=== PATIENT | female | born 1975 | race Caucasian/White ===

== ENCOUNTER 2017-04-27 21:06 | Emergency (ER) | payer SELFPAY ==
[2017-04-27 21:16] VITALS: BMI 32.3
[2017-04-27] MEDS ORDERED: NORMODYNE INJ 20 MG VIAL ONE (21:40)
[2017-04-27] MEDS ORDERED: NORMODYNE INJ 100 MG VIAL IVP ONE (21:40)
--- NOTE | 2017-04-27 21:56 | DR.GENAD ---
HPI - PCP Primary Care Physician: cam - Complaint/Symptoms Chief Complaint:: pt states" a couple hours ago my head stated hurting and i got nauseaed and my bloop pressure 209/136" - Nurses notes reviewed Nurses Notes Review: Yes - Source History Provided: Patient - Mode of Arrival Mode of Arrival: Ambulatory - Timing Onset of Chief Complaint: 04/27/17 Came on: Suddenly - Duration Duration: Constant Duration: Days PMH - PMH Past Medical History: Yes Past Medical History: Hypertension Past Surgical History: Yes - Family History History of Family Medical Conditions: Yes Family Medical History: Diabetes Mellitus, Cancer, [place], Sudden Cardiac , Hypertension - Social History Do you use any recreational Drugs:: No Lives With: Family Lives Where: Home - infectious screening In the last 2 months have you had wt loss of >10#?: NO Have you had fever, night sweats or hemotysis?: No Have you traveled outside the country in the last 6 months?: No Isolation: Standard PE - Vital Signs Vitals: Temperature 97.4 F Pulse Rate [Left Brachial] 80 Pulse Rate 100 Respiratory Rate 16 Blood Pressure [Left Arm] 195/89 Blood Pressure [Right Arm] 180/96 Blood Pressure 271/149 O2 Sat by Pulse Oximetry 99 ROR - Labs Reviewed Result Diagrams: 04/27/17 22:23 04/27/17 22:23 Laboratory: WBC 7.7 X10^3/uL (3.6-10.0) 04/27/17 22:23 RBC 4.34 X10^6/uL (3.5-5.4) 04/27/17 22:23 Hgb 10.7 g/dL (12.0-16.0) L 04/27/17 22:23 Hct 32.2 % (36.0-47.0) L 04/27/17 22:23 MCV 74.2 fL (80.0-100.0) L 04/27/17 22:23 MCH 24.7 pg (27.0-34.0) L 04/27/17 22:23 MCHC 33.3 g/dL (33.0-35.0) 04/27/17 22:23 RDW 14.9 % (11.6-16.5) 04/27/17 22:23 Plt Count 303 X10^3/uL (150.0-450.0) 12/25/17 22:23 Plt Count Comment Adequate (ADEQUATE) 04/27/17 22: MPV 9.2 fL (7.4-11.0) 04/27/17 22:23 Neut % 63.0 % (42.0-75.0) 04/27/17 22: Lymph % 29.3 % (21.0-51.0) 04/27/17 22: [place] % 6.4 % (0.0-13.0) 04/27/17 22:23 Eos % 0.6 % (0.9-2.9) L 04/27/17 22: Baso % 0.7 % (0.2-1.0) 04/27/17 22: Neut # 4.8 x10^3/uL (2.2-4.8) 04/27/17 22: Lymph # 2.2 X10^3/uL (1.3-2.9) 04/27/17 22:23 [place] # 0.5 x10^3/uL (0.3-0.8) 04/27/17 22:23 Eos # 0.0 x10^3/uL (0.0-0.2) 04/27/17 22: Baso # 0.1 X10^3/uL (0.0-0.1) 04/27/17 22: Absolute Nucleated RBC 0.0 /100WBC 04/27/17 22:23 Plt Morphology Comment Normal (NORMAL) 04/27/17 22: RBC Morphology Abnormal (NORMAL) A 04/27/17 22: Microcytosis Slight A 04/27/17 22:23 Sodium 140 mmol/L (136-145) 04/27/17 22:23 Corrected Sodium TNP 04/27/17 22:23 Potassium 3.9 mmol/L (3.5-5.1) 04/27/17 22: Chloride 105 mmol/L (98-107) 04/27/17 22:23 Carbon Dioxide 26.9 mmol/L (21-32) 04/27/17 22:23 BUN 23 mg/dL (7-18) H 04/27/17 22:23 Creatinine 1.58 mg/dL (0.55-1.02) H 04/27/17 22:23 Est GFR (MDRD) Af Amer 46 (>60) L 04/27/17 22:23 Est GFR (MDRD) Non-Af 38 (>60) L 04/27/17 22:23 Glucose 103 mg/dL (65-99) H 04/27/17 22:23 Calcium 8.4 mg/dL (8.5-10.1) L 04/27/17 22:23 Corrected Calcium TNP 04/27/17 22:23 Total Bilirubin 0.20 mg/dL (0.2-1.0) 04/27/17 22:23 AST 14 Units/L (15-37) L 04/27/17 22:23 ALT 19 Units/L (12-78) 04/27/17 22:23 Alkaline Phosphatase 83 Units/L (46-116) 04/27/17 22:23 Total Protein 7.9 g/dL (6.4-8.2) 04/27/17 22:23 Albumin 3.5 g/dL (3.4-5.0) 04/27/17 22:23 Globulin 4.4 g/dL (2.5-4.5) 04/27/17 22:23 Albumin/Globulin Ratio 0.8 Ratio (1.1-2.1) L 04/27/17 22:23 Specimen Type Clean catch urine 04/27/17 22:15 Urine Color Yellow (YELLOW) 04/27/17 22:15 Urine Appearance Clear (CLEAR) 04/27/17 22:15 Urine pH 7.0 (5.0 - 8.0) 04/27/17 22:15 Ur Specific [place] 1.010 (1.000-1.030) 04/27/17 22:15 Urine Protein 2+ (NEGATIVE) 04/27/17 22:15 Urine Glucose (UA) Negative (NEGATIVE) 04/27/17 22:15 Urine Ketones Negative (NEGATIVE) 04/27/17 22:15 Urine Occult Blood 1+ (NEGATIVE) 04/27/17 22:15 Urine Nitrite Negative (NEGATIVE) 04/27/17 22:15 Urine Bilirubin Negative (NEGATIVE) 04/27/17 22:15 Urine Urobilinogen Normal (NORMAL) 04/27/17 22:15 Ur Leukocyte Esterase 3+ (NEGATIVE) 04/27/17 22:15 Urine RBC Rare /HPF (NEGATIVE) 04/27/17 22:15 Urine WBC 1-5 /HPF (NEGATIVE) 04/27/17 22:15 Ur Squamous Epith Cells Moderate /HPF (NEGATIVE) 04/27/17 22:15 Urine Bacteria Trace /HPF (NEGATIVE) 04/27/17 22:15 Ur Culture Indicated? No/not indicated 04/27/17 22:15 Urine Opiates Screen Negative (NEG=<300) 04/27/17 22:15 Urine Methadone Screen Negative (NEG=<300) 04/27/17 22:15 Ur Barbiturates Screen Negative (NEG=<200) 04/27/17 22:15 Ur Phencyclidine Scrn Negative (NEG=<25) 04/27/17 22:15 Ur Amphetamines Screen Negative (NEG=<1000) 04/27/17 22:15 U Benzodiazepines Scrn Negative (NEG=<200) 04/27/17 22:15 Urine Cocaine Screen Negative (NEG=<300) 04/27/17 22:15 U Marijuana (THC) Screen Negative (NEG=<50) 04/27/17 22:15 - Discharge Plan Condition: Stable Prescriptions: Atenolol [TENORMIN 25 mg *] 25 mg PO DAILY #30 tab Lisinopril [ZESTRIL *] 20 mg PO DAILY #30 tab - Follow ups/Referrals Follow ups/Referrals: ALEE CAM [Primary Care Provider] - 3 days - Instructions Instructions: Hypertension, [id number] Additional Instructions: RETURN TO ED IF WORSE. MONITOR BLOOD PRESSURE DAILY AND CHART AND TAKE TO YOUR DOCTOR.
[2017-04-27] MEDS ORDERED: NIFEDIPINE CAP 10 MG PO ONE (21:57)
[2017-04-27] MEDS ORDERED: NIFEDIPINE CAP 10 MG ONE (22:06)
[2017-04-27 22:40] LABS: BASOPHILS # (AUTO) 0.1 X10^3/uL (0.0-0.1); BASOPHILS % (AUTO) 0.7 % (0.2-1.0); EOSINOPHILS % (AUTO) 0.6 % (0.9-2.9); HEMATOCRIT 32.2 % (36.0-47.0); HEMOGLOBIN 10.7 g/dL (12.0-16.0); LYMPHOCYTES # (AUTO) 2.2 X10^3/uL (1.3-2.9); LYMPHOCYTES % (AUTO) 29.3 % (21.0-51.0); MEAN CORPUSCULAR HEMOGLOBIN 24.7 pg (27.0-34.0); MEAN CORPUSCULAR HGB CONC 33.3 g/dL (33.0-35.0); MEAN CORPUSCULAR VOLUME 74.2 fL (80.0-100.0); MEAN PLATELET VOLUME 9.2 fL (7.4-11.0); MONOCYTES # (AUTO) 0.5 x10^3/uL (0.3-0.8); MONOCYTES % (AUTO) 6.4 % (0.0-13.0); NEUTROPHILS # (AUTO) 4.8 x10^3/uL (2.2-4.8); PLATELET COUNT 303 X10^3/uL (150.0-450.0); RED BLOOD COUNT 4.34 X10^6/uL (3.5-5.4); RED CELL DISTRIBUTION WIDTH 14.9 % (11.6-16.5); WHITE BLOOD COUNT 7.7 X10^3/uL (3.6-10.0)
[2017-04-27 22:42] LABS: BILIRUBIN,URINE NEGATIVE (NEGATIVE); BLOOD/HEMOGLOBIN,URINE 1+ (NEGATIVE); GLUCOSE, URINE NEGATIVE (NEGATIVE); KETONES,URINE NEGATIVE (NEGATIVE); LEUKOCYTE ESTERASE ,URINE 3+ (NEGATIVE); NITRITES,URINE NEGATIVE (NEGATIVE); PROTEIN,URINE 2+ (NEGATIVE); UROBILINOGEN,URINE NORMAL (NORMAL)
[2017-04-27 22:50] LABS: ALANINE AMINOTRANSFERASE 19 Units/L (12-78); ALBUMIN 3.5 g/dL (3.4-5.0); ALKALINE PHOSPHATASE 83 Units/L (46-116); ASPARTATE AMINO TRANSFERASE 14 Units/L (15-37); BLOOD UREA NITROGEN 23 mg/dL (7-18); CALCIUM 8.4 mg/dL (8.5-10.1); CARBON DIOXIDE 26.9 mmol/L (21-32); CHLORIDE 105 mmol/L (98-107); CREATININE 1.58 mg/dL (0.55-1.02); SODIUM 140 mmol/L (136-145); TOTAL PROTEIN 7.9 g/dL (6.4-8.2); eGFR BLACK RACES 46 (>60); eGFR NON BLACK RACES 38 (>60)
[2017-04-27 22:53] LABS: MICROCYTOSIS SLIGHT; PLATELET MORPHOLOGY COMMENT NORMAL (NORMAL)
[2017-04-27 23:05] LABS: APPEARANCE,URINE CLEAR (CLEAR); BACTERIA,URINE TRACE /HPF (NEGATIVE); COLOR,URINE YELLOW (YELLOW); RBC,URINE RARE /HPF (NEGATIVE); SQUAMOUS EPITHELIAL CELL,UR MODERATE /HPF (NEGATIVE)
[2017-04-28] MEDS ORDERED: CATAPRES TAB 0.2 MG PO ONE (01:30)
[2017-04-28] MEDS ORDERED: CATAPRES TAB 0.2 MG ONE (01:40)
[2017-04-28 03:17] VITALS: BP 189/98
== END 2017-04-28 03:10 | disposition home or self-care (01) ==
LOC: ER 21:19
DX: I10 Essential (primary) hypertension (principal)
CPT/HCPCS: 36415; 80053; 80307; 81001; 85025; 96365; 96374; 99282; 99283; A4222; G0434; J3490

== ENCOUNTER 2017-06-14 15:39 | Emergency (ER) | payer OTHER ==
[2017-06-14 15:46] VITALS: BMI 32.3
[2017-06-14] MEDS ORDERED: NIFEDIPINE CAP 10 MG PO ONE (17:06)
[2017-06-14] MEDS ORDERED: NIFEDIPINE CAP 10 MG ONE (17:07)
[2017-06-14] MEDS ORDERED: ROCEPHIN VIAL 1 GM IM ONE (17:18)
[2017-06-14] MEDS ORDERED: TORADOL 60 MG VIAL IM ONE (17:18)
--- NOTE | 2017-06-14 17:19 | DR.GENAD ---
HPI - PCP Primary Care Physician: Dr. Cam - Complaint/Symptoms Chief Complaint:: Since pt c/o left nare pain. States that pain has increased gradually and has made her whole head hurt. Pt states that left side of face has started swelling Self Treatment fo Chief Complaint: took sinus medicine and tylenol with no relief - Nurses notes reviewed Nurses Notes Review: Yes - Source History Provided: Patient - Mode of Arrival Mode of Arrival: Ambulatory - Timing Onset of Chief Complaint: 06/11/17 Came on: Suddenly - Duration Duration: Constant Duration: Days - Severity Severity: Moderate PMH - PMH Past Medical History: Yes Past Medical History: Hypertension Past Surgical History: Yes Past Surgical History Comment: tubal ligation - Family History History of Family Medical Conditions: Yes Family Medical History: Diabetes Mellitus, Cancer, [place], Hypertension - Social History Does patient currently use any type of tobacco product: No Have you used tobacco products in the last 12 months: No Type of Tobacco Use: None Does any household member use tobacco: Yes Alcohol Use: None Do you use any recreational Drugs:: No Lives With: Family Lives Where: Home - infectious screening In the last 2 months have you had wt loss of >10#?: NO Have you had fever, night sweats or hemotysis?: No Have you traveled outside the country in the last 6 months?: No Isolation: Standard PE - Vital Signs Vitals: Temperature 97.3 F Pulse Rate [Right Brachial] 86 Pulse Rate 101 Respiratory Rate 17 Blood Pressure [Left Arm] 170/93 Blood Pressure [Right Arm] 220/130 Blood Pressure 239/129 O2 Sat by Pulse Oximetry 99 - Discharge Plan Condition: Stable Prescriptions: Amoxicillin [Amoxil 875 mg] 875 mg PO Q12H #20 tab Clonidine HCl [CATAPRES 0.1 MG TAB *] 0.1 mg PO BID #60 tab Lisinopril 20 mg PO DAILY #30 tablet - Follow ups/Referrals Follow ups/Referrals: ALEE CAM [Primary Care Provider] - 3 days - Instructions Instructions: Sinusitis, Adult, [id number], Hypertension, [id number] Additional Instructions: RETURN TO ED IF WORSE. BP CHECK DAILY AND TAKE TO MDJacy
[2017-06-14] MEDS ORDERED: ROCEPHIN VIAL 1 GM ONE (17:25)
[2017-06-14] MEDS ORDERED: TORADOL 30 MG VIAL ONE (17:25)
[2017-06-14] MEDS ORDERED: CATAPRES TAB 0.1 MG PO ONE (18:22)
[2017-06-14] MEDS ORDERED: CATAPRES TAB 0.1 MG ONE (18:23)
[2017-06-14] MEDS ORDERED: CATAPRES TAB 0.2 MG PO ONE (19:16)
[2017-06-14] MEDS ORDERED: CATAPRES TAB 0.2 MG ONE (19:24)
[2017-06-14 20:40] VITALS: BP 170/99
== END 2017-06-14 20:25 | disposition home or self-care (01) ==
LOC: ER 16:09
DX: J32.9 Chronic sinusitis, unspecified (principal); I10 Essential (primary) hypertension
CPT/HCPCS: 96372; 99282; 99283; J0696; J1885

== ENCOUNTER → 2017-06-23 | Outpatient (CLI) | payer OTHER ==
[2017-06-14 20:40] VITALS: BP 170/99
--- NOTE | 2017-06-23 13:20 | MG ---
HISTORY: SCREENING Comparison: None FINDINGS: Bilateral CC and MLO projections of the right and left breast were obtained. Heterogeneously dense f ibroglandular tissue is seen to be present. No suspicious architectural distortion, mass or clustere d microcalcifications can be observed to suggest malignancy. No skin thickening or nipple retraction is appreciated. No pathological lymphadenopathy can be identified. Benign-appearing calcifications are noted within the right and left breast. IMPRESSION: NO RADIOGRAPHIC EVIDENCE OF MALIGNANCY. ACR CATEGORY 2 - benign findings. FOLLOW-UP EXAM 1 YEAR. Diagnostic CAD was utilized and reviewed. * 0 (ZERO) - ASSESSMENT INCOMPLETE; ADDITIONAL IMAGING IS NEEDED. * / (ONE) - NEGATIVE. * 2/II (TWO) - BENIGN FINDINGS. * 3/III (THREE) - PROBABLY BENIGN FINDING; SHORT INTERVAL FOLLOW-UP SUGGESTED. * 4/IV (FOUR) - SUSPICIOUS ABNORMALITY; BIOPSY SHOULD BE CONSIDERED. * 5/V - HIGHLY SUSPICIOUS OF MALIGNANCY; BIOPSY SHOULD BE PERFORMED. A NEGATIVE X-RAY REPORT SHOULD NOT DELAY BIOPSY IF A DOMINANT OR CLINICALLY SUSPICIOUS MASS IS PRESENT; 4 TO 8 PERCENT OF CANCERS ARE NOT IDENTIFIED BY X-RAY. A NEGA TIVE REPORT MAY REINFORCE THE CLINICAL IMPRESSION. ADENOSIS AND DENSE BREASTS MAY OBSCURE AN UNDERLY ING NEOPLASM. Reported By:
== END ==
LOC: RAD 09:50
PROVIDERS: ATTEND Obstetrics & Gynecology Obstetrics
DX: Z00.8 Encounter for other general examination (principal); Z12.31 Encounter for screening mammogram for malignant neoplasm of breast
CPT/HCPCS: 77067

== ENCOUNTER → 2017-07-15 | Outpatient (CLI) | payer OTHER ==
[~2017-07-15] MED LIST: NS 100 ML IV 100 ML IV ONE
--- NOTE | 2017-07-15 12:44 | CT ---
Exam: Head CT, without and with contrast History: 42-year-old female with bilateral arm numbness. Comparison: None Findings: Imaging was performed from the vertex to the base the skull both before, then follow admini stration of intravenous contrast. Posterior fossa and supratentorial region demonstrate no evidence of intracranial hemorrhage, extrace rebral fluid collections, or intracranial mass. Ventricles are symmetric in size and position with no mass effect seen. Following contrast administration, no abnormal areas of enhancement are seen. On the bone windows, no acute abnormality is identified. Visualized aspect of the paranasal sinuses a nd mastoid air cells are clear. IMPRESSION: Unremarkable head CT. Reported By:
== END | disposition home or self-care (01) | DRG 93 ==
LOC: RAD 11:37
PROVIDERS: ATTEND Obstetrics & Gynecology Obstetrics
DX: G83.20 Monoplegia of upper limb affecting unspecified side (principal); Z82.49 Family history of ischemic heart disease and other diseases of the circulatory system; R20.0 Anesthesia of skin
CPT/HCPCS: 70470; A4222

== ENCOUNTER → 2017-08-18 | Outpatient (CLI) | payer OTHER | LOC: RT 11:16 | PROVIDERS: ATTEND Obstetrics & Gynecology Obstetrics | DX: G83.24 Monoplegia of upper limb affecting left nondominant side (principal) | CPT/HCPCS: 95909 ==